=== PATIENT | female | born 1975 | race Caucasian/White ===

== ENCOUNTER 2018-06-21 10:22 | Inpatient (IN) | END 2018-06-24 18:30 | disposition home or self-care (01) | DRG 440 ==

== ENCOUNTER 2019-02-20 07:12 | Day surgery (SDC) | payer BC ==
[2019-02-20] VITALS (20 sets, daily range): BP systolic 97–138; BP diastolic 53–90; PULSE 64–104; RESP 7–33; Ht 160 cm; Wt 83.3 kg
[~2019-02-20] VITALS: Ht 160 cm; Wt 83.3 kg
[2019-02-20] MEDS ORDERED: SOD CHLORIDE 0.9% 1,000 ML IV ONE (07:30)
[2019-02-20] MEDS ORDERED: CEFAZOLIN 2 GM/50 ML (PMX) 50 ML IVPB ONE (07:30)
[2019-02-20] MEDS ORDERED: METF500T24 PO (08:00)
[2019-02-20] MEDS ORDERED: LISI2.5T59 PO (08:00)
[2019-02-20] MEDS ORDERED: FER325 PO (08:01)
[2019-02-20] MEDS ORDERED: ASPI81TA52 PO (08:02)
[2019-02-20] MEDS ORDERED: BUPIVACAINE 0.25%/EPI (SDV) 30 ML INJ ONE (08:16)
[2019-02-20] MEDS ORDERED: SUCCINYLCHOLINE CHLORIDE 100 MG/5 ML SYG IV ONE (08:36)
[2019-02-20] MEDS ORDERED: MIDAZOLAM 1 MG/ML 2 ML INJ ONE (08:36)
[2019-02-20] MEDS ORDERED: ROCURONIUM 50 MG INJ ONE (08:36)
[2019-02-20] MEDS ORDERED: SUGAMMADEX SODIUM 200 MG/2 ML VIAL IV ONE (08:37)
[2019-02-20] MEDS ORDERED: DEXAMETHASONE 4 MG/ML 5 ML INJ ONE (08:37)
[2019-02-20] MEDS ORDERED: ONDANSETRON 4 MG INJ ONE (08:37)
[2019-02-20] MEDS ORDERED: PROPOFOL 20 ML ONE (08:38)
--- NOTE | 2019-02-20 08:55 | HPN ---
Date/Time of Note Date/Time of Note DATE: 02/20/19 TIME: 08:55 Interval H&P Admission Note Pt. seen H&P reviewed: No system changes MARIO BOWER MD February 20, 2019 08:55
[2019-02-20] MEDS ORDERED: LIDOCAINE 100 MG SYRINGE ONE (09:14)
[2019-02-20] MEDS ORDERED: CEFAZOLIN 1 GM INJ ONE (09:21)
--- NOTE | 2019-02-20 09:26 | PREAC ---
Date/Time of Note Date/Time of Note DATE: 02/20/19 TIME: 09:17 Anesthesia Eval and Record Evaluation Time Pre-Procedure Interview DATE: 02/20/19 TIME: 08:45 Age 43 Sex female NPO: 8 hrs Preoperative diagnosis Cholelithiasis Planned procedure Lap vs open Cholecystectomy Past Medical History Past Medical History: Includes Cardio: HTN Endo: Diabetes Surgery & Anesthesia Issues No known issue Meds Anticoagulation: No Beta Angelique within 24 hr: No Reason Beta Angelique not given: Pt. not on B-Angelique Reported Medications Aspirin (Low Dose Aspirin) 81 Mg Tablet.dr, 81 MG PO DAILY, #30 TAB 02/20/19 Ferrous Sulfate* (Ferrous Sulfate*) 325 Mg Tabec, 325 MG PO TID, TAB 02/20/19 Metformin Hcl* (Metformin Hcl*) 500 Mg Tablet, 500 MG PO WITH BREAKFAST DINNE, #60 TAB 02/20/19 Lisinopril* (Lisinopril*) 2.5 Mg Tablet, 2.5 MG PO DAILY, #30 TAB 02/20/19 Discontinued Scripts Acetaminophen* (Acetaminophen*) 650 Mg Tablet, 650 MG PO Q6H PRN for PAIN AND OR ELEVATED TEMP for 30 Days, #90 TAB Prov:ADRIENNE BRAGG MD 06/24/18 Tramadol HCl (Tramadol HCl) 50 Mg Tablet, 50 MG PO Q6H PRN for PAIN LEVEL 4-6 for 7 Days, #20 TAB Prov:ADRIENNE BRAGG MD 06/24/18 Current Medications Sodium Chloride 1,000 ml @ 75 mls/hr [id number] ONCE IV Last administered on 02/20/19at 08:17; Admin Dose 75 MLS/HR; Start 02/20/19 at 07:30; Stop 02/20/19 at 20:49 Meds reviewed: Yes Allergies Coded Allergies: No Known Allergy (Unverified , 02/20/19) Allergies Reviewed: Yes Labs/Studies Labs Reviewed: Reviewed by anesthesiologist test: Negative Pre-procedure Exam Last vitals Vital Signs Date Temp Pulse Resp B/P (MAP) Pulse Ox O2 O2 Flow FiO2 Time Delivery Rate 02/20/19 97.8 74 16 113/69 97 Room Air 08:31 (84) Airway: Adequate mouth opening Mallampati: Mallampati II Teeth: Normal Lung: Normal Heart: Normal ASA Physical Status ASA physical status: 2 Emergency: None Planned Anesthetic General/MAC: ETT Pre-operative Attestations Prior to commencing anesthesia and surgery, the patient was re-evaluated, there was verification of: *The patient's identity *The results of appropriate recent lab work and preoperative vital signs *The above evaluation not changing prior to induction *Anesthetic plan, risk benefits, alternative and complications discussed with patient/family; questions answered; patient/family understands, accepts and wishes to proceed. ABY RANDALL MD February 20, 2019 09:26
[2019-02-20] MEDS ORDERED: HYDROmorphONE 1 MG/5 ML IV SYRINGE IV PRN ×3 (09:30)
[2019-02-20] MEDS ORDERED: DIPHENHYDRAMINE 50 MG INJ IV PRN (09:30)
[2019-02-20] MEDS ORDERED: MEPERIDINE 25 MG INJ IV PRN (09:30)
[2019-02-20] MEDS ORDERED: ONDANSETRON 4 MG INJ IV PRN ×2 (09:30→10:30)
[2019-02-20] MEDS ORDERED: LABETALOL HCL 20MG INJ IV PRN (09:30)
--- NOTE | 2019-02-20 10:25 | OPR ---
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 Patient was initially seen at the hospital where she was diagnosed with choledocholithiasis. She underwent an ERCP at that time with extraction of common bile duct stones and sphincterotomy. She then presented to the office for cholecystectomy. An ultrasound showed a gallbladder filled with gallstones without evidence of acute cholecystitis. The patient was scheduled for laparoscopic cholecystectomy; possible open as definitive treatment to prevent further sequelae of gallstone disease which include but are not limited to: Gangrenous cholecystitis, choledocholithiasis, gallstone pancreatitis, ascending cholangitis, etc. All risks and benefits of the procedure including but not limited to: Wound infection, excessive bleeding, common bile duct injury, postoperative biliary leak, retained common bile duct stone, injury to intra-abdominal organs, conversion to open procedure, possible need for subsequent surgeries, etc. were all explained to the patient in full detail. She fully understood and wished to proceed with the procedure. Informed consent was therefore obtained. Procedure Description The patient was brought to the operating room and placed supine on the operating table. Bilateral sequential compression devices were placed on both lower extremities. A dose of broad-spectrum perioperative intravenous antibiotics was given. After the induction of smooth general endotracheal anesthesia the patient's abdomen was prepped and draped in the standard surgical fashion. After performance of the surgical timeout a 5 mm incision was made in the inferior umbilicus and a Veress needle was used to access the intra-abdominal cavity atraumatically. Pneumoperitoneum was then obtained and the Veress needle was exchanged for a 5 mm trocar through which a 5 mm laparoscope was placed. Three further working ports were then placed a 12 mm port in the sub-xiphoid region and two 5 mm ports in the right upper quadrant. All port sites were anesthetized with 0.25% Marcaine with epinephrine prior to incision. Using atraumatic graspe rs the gallbladder was grasped and retracted superiorly and laterally exposing the area of Urban's pouch. Gallbladder was noted to be filled with gallstones with a very large gallstone near the gallbladder neck. Dissection was begun in the area of the cystic duct structures using a combination of blunt dissection and hook electrocautery. The gallbladder was mobilized along its medial and lateral attachments to the liver bed using hook electrocautery to gain better exposure and mobility on the gallbladder. A scarred and dilated cystic duct was identified as it entered straight into the neck of the gallbladder. It was dissected free of surrounding tissues. It was too dilated to fit the clip assistant baseball coach. Therefore, once completely isolated the cystic duct was transected using a firing of the laparoscopic ZEN stapler. Clips were then placed on the staple line. Dissection was then continued posteriorly. The cystic artery was identified and dissected free of surrounding tissues. It was clipped proximally x1 and transected using the hook electrocautery. Critical view was obtained prior to transection of the duct and artery. The gallbladder was then dissected off the liver bed using electrocautery. Once completely free the gallbladder was placed in an Endo Catch bag and withdrawn through the subxiphoid port site and passed off the field as specimen. Hemostasis was then inspected for and noted to be total. The fascia of the subxiphoid port site was then reapproximated using a misty-close device. Pneumoperitoneum was then released and all remaining trochars were withdrawn under direct vision. The subcutaneous tissues were irrigated with warm normal saline and further local anesthesia was applied around the skin of the incision sites. The skin was then reapproximated using 4-0 Monocryl sutures in subcuticular fashion. The incisions were cleaned and Dermabond was applied to the incisions and the patient was awoken from anesthesia and transported to the recovery room in stable condition. All counts were correct at the end of the case x 2. MARIO BOWER MD February 20, 2019 10:25
[2019-02-20] MEDS ORDERED: HYDROCODONE/APAP (5/325) TAB PO PRN ×2 (10:30)
[2019-02-20] MEDS ORDERED: morphine 2 MG INJ IV PRN (10:30)
[2019-02-20] MEDS ORDERED: KETOROLAC 30 MG INJ IV PRN (10:30)
--- NOTE | 2019-02-20 11:18 | PAC ---
Date/Time of Note Date/Time of Note DATE: 02/20/19 TIME: 11:17 Post-Anesthesia Notes Post-Anesthesia Note Last documented vital signs Vital Signs Date Temp Pulse Resp B/P (MAP) Pulse Ox O2 O2 Flow FiO2 Time Delivery Rate 02/20/19 98.9 10:27 02/20/19 97 20 132/65 100 Mask 8.0 10:23 (87) Activity: WNL Respiratory function: WNL Cardiovascular function: WNL Mental status: Baseline Pain reasonably controlled: Yes Hydration appropriate: Yes Nausea/Vomiting absent: Yes ABY RANDALL MD February 20, 2019 11:17
== END 2019-02-20 12:34 | disposition home or self-care (01) ==
LOC: SDS 07:12
PROVIDERS: ATTEND Surgery
DX: K80.10 Calculus of gallbladder with chronic cholecystitis without obstruction (principal); I10 Essential (primary) hypertension; E11.9 Type 2 diabetes mellitus without complications
CPT/HCPCS: 47562; 82962; 88304; J0690; J1100; J1170; J1885; J2001; J2175; J2250; J2405; J3010; Z7512; Z7610